=== PATIENT | female | born 1970 | race Caucasian/White ===

== ENCOUNTER 2017-12-15 18:57 | Emergency (ER) | payer BC ==
[2017-12-15 19:02] VITALS: BP 153/100
--- NOTE | 2017-12-15 19:27 | ED ---
Lower Extremity - HPI Summary HPI Summary: 47-year-old female presents left ankle and foot pain today. 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 She states her leg gave out and she landed on her knees. She was able to ambulate afterwards but has been having intense pain in her fifth metatarsal. She states this is how she broke her right metatarsal many years ago. She states the pain feels similar. She has no pain at rest but hurts when she put weight on it. She hasn't taking anything for her symptoms. She denies any numbness or tingling. She states her knee still just bruised but are not broken. She denies any other injury. - History of Current Complaint Chief Complaint: EDExtremityLower Stated Complaint: FALL LT ANKLE INJURY Time Seen by Provider: 12/15/17 19:04 Hx Last Menstrual Period: 04/17/2014 Pain Intensity: 3 - Allergies/Home Medications Allergies/Adverse Reactions: Allergies Allergy/AdvReac Type Severity Reaction Status Date / Time No Known Allergies Allergy Verified 12/15/17 19:02 Home Medications: Home Medications Cholecalciferol TAB* [Vitamin D TAB*] 1,000 unit PO DAILY 12/15/17 [History Confirmed 12/15/17] [place]-3 Fatty Acids/Fish Oil [Fish Oil 1,000 mg Capsule] 1 each PO DAILY [History Confirmed 12/15/17] Tamoxifen TAB* [Nolvadex*] 20 mg PO BEDTIME 12/15/17 [History Confirmed 12/15/17 ] Venlafaxine HCl [Effexor XR-] 37.5 mg PO DAILY 12/15/17 [History Confirmed 12/15] PMH/Surg Hx/FS Hx/Imm Hx Endocrine/Hematology History: Denies: Hx Diabetes, Hx Thyroid Disease Cardiovascular History: Reports: Other Cardiovascular Problems/Disorders - innocent murmur as a child Denies: Hx Hypertension, Hx Pacemaker/ICD Respiratory History: Denies: Hx Asthma, Hx Chronic Obstructive Pulmonary Disease (COPD) GI History: Denies: Hx Ulcer Musculoskeletal History: Denies: Hx Osteoporosis Sensory History: Denies: Hx Hearing Aid Psychiatric History: Denies: Hx Panic Disorder - Cancer History Cancer Type, Location and Year: NEWLY DX LT BREAST CANCER Hx Chemotherapy: Yes Hx Radiation Therapy: Yes - ended 01/26 - Surgical History Surgery Procedure, Year, and Place: Bilateral hernia repair age 3, left breast lumpectomy 08/22/15 Infectious Disease History: No Infectious Disease History: Denies: Hx Hepatitis, Hx Human Immunodeficiency Virus (HIV), Traveled Outside the [place] in Last 30 Days - Family History Known Family History: Positive: Hypertension - Social History Alcohol Use: Occasionally Substance Use Type: Reports: None Smoking Status (MU): Never Smoked Tobacco Review of Systems Negative: Fever Negative: Chest Pain Negative: Shortness Of Breath Positive: Myalgia - left ankle and foot All Other Systems Reviewed And Are Negative: Yes Physical Exam Triage Information Reviewed: Yes Vital Signs On Initial Exam: Initial Vitals Temp Pulse Resp BP Pulse Ox 97.8 F 76 18 153/100 99 12/15/17 19:00 12/15/17 19:00 12/15/17 19:00 12/15/17 19:00 12/15/17 19:00 Vital Signs Reviewed: Yes Appearance: Positive: Well-Appearing Skin: Positive: Warm, Dry Head/Face: Positive: Normal Head/Face Inspection Eyes: Positive: Normal, Conjunctiva Clear Respiratory/Lung Sounds: Positive: Clear to Auscultation, Breath Sounds Present Cardiovascular: Positive: Normal, RRR Musculoskeletal: Positive: Limited @ - left ankle, Edema Left - ankle, Other - tenderness over left 5th metatarsal head and lateral aspect left ankle, good pulses, capillary refill<2 secs, sensation grossly intact Neurological: Positive: Normal Psychiatric: Positive: Normal Diagnostics - Vital Signs Vital Signs Temp Pulse Resp BP Pulse Ox 12/15/17 19:00 97.8 F 76 18 153/100 99 - Laboratory Lab Statement: Any lab studies that have been ordered have been reviewed, and results considered in the medical decision making process. - Radiology ankle Xray Interpretation: No Acute Changes - Mild HALLUX VALGUS WITH MILD OSTEOARTHRITIS OF THE FIRST MTP JOINT. NO ACUTE OSSEOUS INJURY TO THE LEFT FOOT OR LEFT ANKLE. IF SYMPTOMS PERSIST, RECOMMEND REPEAT IMAGING. Radiology Interpretation Completed By: Radiologist Lower Extremity Course/Dx - Course Course Of Treatment: 47-year-old female presents left ankle and foot pain today. 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 She states her leg gave out and she landed on her knees. She was able to ambulate afterwards but has been having intense pain in her fifth metatarsal. She states this is how she broke her right metatarsal many years ago. She states the pain feels similar. She has no pain at rest but hurts when she put weight on it. She hasn't taking anything for her symptoms. She denies any numbness or tingling. She states her knee still just bruised but are not broken. She denies any other injury. on exam has tenderness 5th metatarsal and lateral aspect of left ankle. neurovascular intact. xray shows no fracture. will treat with RICE. patient understand and agrees with plan. - Diagnoses Differential Diagnosis/HQI/PQRI: Positive: Fracture (Closed), Sprain, Strain Provider Diagnoses: Left ankle injury Discharge - Sign-Out/Discharge Documenting (check all that apply): Discharge - Discharge Plan Condition: Good Disposition: HOME Patient Education Materials: Ankle Sprain (ED) Referrals: Modesto Edwards MD [Primary Care Provider] - Additional Instructions: Stay off ankle as much as possible Ice, elevate, use LEANNE Ibuprofen or Tylenol every 6 hours for pain Follow up with primary if no improvement Return to ED if develop or any new or worsening symptoms - Billing Disposition and Condition Condition: GOOD Disposition: HOME
--- NOTE | 2017-12-15 19:48 | RAD ---
HISTORY: Left fifth metatarsal pain, left ankle pain, injury COMPARISONS: None VIEWS: 6, Frontal, lateral, and oblique views of the left foot and left ankle FINDINGS: BONE DENSITY: Normal. BONES: There is no displaced fracture. There are calcaneal enthesophytes. JOINTS: There is mild osteoarthritis of the first MTP joint. ALIGNMENT: There is mild hallux valgus. SOFT TISSUES: Unremarkable. OTHER FINDINGS: None. IMPRESSION: Mild HALLUX VALGUS WITH MILD OSTEOARTHRITIS OF THE FIRST MTP JOINT. NO ACUTE OSSEOUS INJURY TO THE LEFT FOOT OR LEFT ANKLE. IF SYMPTOMS PERSIST, RECOMMEND REPEAT IMAGING.
== END 2017-12-15 20:03 | disposition home or self-care (01) ==
LOC: ED 18:57
DX: S99.912A Unspecified injury of left ankle, initial encounter (principal); X58.XXXA Exposure to other specified factors, initial encounter; Y92.9 Unspecified place or not applicable
CPT/HCPCS: 99281

== ENCOUNTER 2019-12-01 12:51 | Emergency (ER) | payer BC ==
--- NOTE | 2019-12-01 14:35 | UC ---
FLU HPI - HPI Summary HPI Summary: 49-year-old female presents with onset of fever, chills, general malaise, fatigue, mild nasal congestion, sore throat, and a dry nonproductive cough yesterday. 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 She did receive her flu vaccine this season. No recent travel and no known contact with persons being isolated for or diagnosed with COVID-19. No sick contact at home. Denies ear pain, dysphagia, chest pain, shortness of breath, abdominal pain, nausea, vomiting, or diarrhea. - History of Current Complaint Chief Complaint: UCGeneralIllness Stated Complaint: SORE THROAT FEVER COUGH Time Seen by Provider: 12/01/19 13:57 Hx Obtained From: Patient Hx Last Menstrual Period: 04/17/2014 Pain Intensity: 1 - Allergy/Home Medications Allergies/Adverse Reactions: Allergies Allergy/AdvReac Type Severity Reaction Status Date / Time valacyclovir Allergy Rash Verified 12/01/19 13:44 Home Medications: Home Medications Cholecalciferol TAB* [Vitamin D TAB*] 1,000 unit PO DAILY 12/15/17 [History Confirmed 12/01/19] [place]-3 Fatty Acids/Fish Oil [Fish Oil 1,000 mg Capsule] 1 each PO DAILY [History Confirmed 12/01/19] Venlafaxine HCl [Effexor XR-] 37.5 mg PO DAILY 12/15/17 [History Confirmed 11/30] Acetaminophen TAB* [Tylenol TAB*] 650 mg PO ONCE 12/01/19 [History Confirmed ] Letrozole (NF) [Femara (NF)] 2.5 mg PO BEDTIME 12/01/19 [History Confirmed 11/30] PMH/Surg Hx/FS Hx/Imm Hx Previously Healthy: Yes Cancer History: Breast Cancer - Surgical History Surgical History: Yes Surgery Procedure, Year, and Place: Bilateral hernia repair age 3, left breast lumpectomy 08/22/15 - Family History Known Family History: Positive: Hypertension - Social History Occupation: Employed Full-time Lives: With Family Alcohol Use: None Substance Use Type: None Smoking Status (MU): Never Smoked Tobacco Review of Systems All Other Systems Reviewed And Are Negative: Yes Constitutional: Positive: Fever, Chills, Fatigue Skin: Negative: Rash Eyes: Negative: Drainage, Eye Redness ENT: Positive: Sore Throat, Nasal Discharge, Sinus Congestion. Negative: Ear Ache, Sinus Pain/Tenderness Respiratory: Positive: Cough. Negative: Shortness Of Breath Cardiovascular: Negative: Palpitations, Chest Pain Gastrointestinal: Negative: Abdominal Pain, Vomiting, Diarrhea, Nausea Genitourinary: Positive: Negative Musculoskeletal: Positive: Myalgia Neurological/Mental Status: Positive: Negative Is Patient Immunocompromised?: No Physical Exam - Summary Physical Exam Summary: Physical exam was limited due to telemedicine evaluation for possible COVID-19 infection. Triage Information Reviewed: Yes Vital Signs Reviewed: Yes Flu Course/Dx - Course Course Of Treatment: 49-year-old female presents with onset of fever, chills, general malaise, fatigue, mild nasal congestion, sore throat, and a dry nonproductive cough yesterday. 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 She did receive her flu vaccine this season. No recent travel and no known contact with persons being isolated for or diagnosed with COVID-19. No sick contact at home. Denies ear pain, dysphagia, chest pain, shortness of breath, abdominal pain, nausea, vomiting, or diarrhea. Afebrile. Hypertensive otherwise vital signs stable. Patient's physical exam was limited due to telemedicine out of concern for potential COVID-19 infection however patient did not appear to be in any acute respiratory distress. Rapid strep test was negative. Rapid flu was negative. Due to the patient's potential for occupational exposure to COVID- 19 recommending testing at this time, in-home isolation, and symptomatic treatment. Patient was counseled to remain on home isolation for 14 days or until cleared by the health department. Anticipatory guidance and warning symptoms were reviewed with the patient. Verbalizes understanding and agrees with POC. - Differential Dx/Diagnosis Differential Diagnosis/HQI/PQRI: Bronchitis, Influenza, Pneumonia, Upper Respiratory Infection, Other - Pharyngitis, tonsilitis, COVID-19 Provider Diagnosis: Viral URI with cough Discharge ED - Sign-Out/Discharge Documenting (check all that apply): Patient Departure All imaging exams completed and their final reports reviewed: No Studies - Discharge Plan Condition: Stable Disposition: HOME Patient Education Materials: Upper Respiratory Infection (ED) Forms: COVID-19 Tested & Isolation Referrals: Modesto Edwards MD [Primary Care Provider] - Additional Instructions: The rapid strep test and rapid flu test performed in the clinic today were negative. Because of your potential environmental exposure to the COVIS-19 virus we will be testing you for this. Please refer to the discharge instructions for the COVID-19 testing and isolation. You will need to remain on home isolation for 14 days or until you have been cleared by the public health department. Drink plenty of fluids to avoid dehydration especially if you are running any fever. Use a saline rinse kit such as Neti Pot or NeilMed at least twice a day to help thin secretions and promote drainage of the sinuses. Use fluticasone (Flonase) nasal spray 2 sprays each nostril once daily. Take over the counter acetaminophen (Tylenol) according to directions as needed for pain or fever. It is recommended that you avoid use of ibuprofen (Advil, Motrin) as it may worsen symptoms in a COVID-19 infection. Use salt water gargles several times a day if you have a sore throat. You may also use Chloraseptic spray or Cepacol lonzenges according to directions which contain a numbing medication and can provide some temporary relief from your sore throat. Seek immediate medical attention in the emergency room if you have fever greater than 100.5 F despite taking acetaminophen, have severe chest pain, difficulty breathing, or have any worsening of symptoms. - Billing Disposition and Condition Condition: STABLE Disposition: Home
[2019-12-01 14:45] VITALS: BP 153/98
[2019-12-01 14:50] LABS: Influenza A Molecular Negative (Negative); Influenza B Molecular Negative (Negative)
== END 2019-12-01 15:10 | disposition home or self-care (01) ==
LOC: UCEAST 12:51
DX: J06.9 Acute upper respiratory infection, unspecified (principal); R05 Cough; Z20.828 Contact with and (suspected) exposure to other viral communicable diseases; Z88.1 Allergy status to other antibiotic agents
CPT/HCPCS: 87651; 99211; G0463; U0002